=== PATIENT | male | born 1950 | race Caucasian/White ===

== ENCOUNTER 2016-11-10 10:25 | Emergency (ER) | payer BC ==
[~2016-11-10 10:25] MED LIST: ADULT LOW DOSE81 MG PO; EPIPEN 2-P0.3 MG/0.3 IM; LEVOTHYROXINE50 MCG PO; LISINOPRIL20 MG PO; MULTIVITAMINS1 EAC7 PO; NITROSTAT0.4 MG SL; SULFASALAZINE500 MG PO
[2017-04-08] MEDS ORDERED: HYDROCHLOROTH12.5 MG PO (11:24)
[2017-04-08] MEDS ORDERED: FLAXSEED-FISH-400 MG PO (11:26)
[2017-04-08] MEDS ORDERED: OCUVITE TABLET1 EAC1 PO (11:27)
== END 2016-11-10 11:08 | disposition home or self-care (01) ==
LOC: ED 10:25
DX: Z00.8 Encounter for other general examination (principal)

== ENCOUNTER 2020-03-06 11:50 | Day surgery (SDC) | payer BC ==
[~2020-03-06] VITALS: Ht 182.9 cm; Wt 111.0 kg
--- NOTE | ~2020-03-06 | OR ---
[facility] [address] [place], [place] [address] Draft DATE OF OPERATION: 03/06/2020 SURGEON: Andrea Herrera MD PREOPERATIVE DIAGNOSES: 1. Longstanding history of ulcerative colitis. 2. Skin lesion, right posterior shoulder and neck. POSTOPERATIVE DIAGNOSES: 1. Skin lesion on posterior shoulder, likely skin cancer. 2. Diverticulosis of colon and no evidence of ulcerative colitis. 3. Small polyp of rectum, probably hyperplastic. PROCEDURES: 1. Total colonoscopy to cecum with random biopsies. 2. Excision of rectal small polyp. ANESTHESIA: Intravenous sedation, fentanyl 150 mcg and Versed 7 mg. INDICATIONS: This 69-year-old white man is a patient of Dr. Arboleda and well known to me from the past. He last underwent colonoscopy in 2017. He has longstanding ulcerative colitis more than 25 years. He is here for surveillance colonoscopy on the basis of his ulcerative colitis, though he has no particular complaints of diarrhea, bleeding, or anything of that sort. He takes sulfasalazine 500 mg daily. Additionally, he is noted to have skin lesion of his right posterior shoulder and a smaller lesion of his nape and back of his neck, which we are anticipating for resection in the future. He understands the risks of bleeding, infection, and perforation related to colonoscopy and wished to proceed. FINDINGS: The prep was excellent. Complete colonoscopy undertaken of the cecum. There were multiple diverticula of the sigmoid and left colon. There was a small polyp of the rectum, which was excised. The remaining colon showed no evidence of active colitis. As regard to the skin lesion, the posterior shoulder on the right side, the lesion is ulcerated highly consistent with skin cancer, for which we advocate excision. We will set that up. PATIENT NAME: CELENA LAMBERT OPERATIVE REPORT DATE OF : 52 REPORT #: [id number] PHYSICIAN: ANDREA HERRERA MD PCP: PATTY ARBOLEDA MD REPORT IS CONFIDENTIAL AND NOT TO BE RELEASED WITHOUT AUTHORIZATION [facility] [address] [place], [place] [address] Draft DESCRIPTION OF PROCEDURE: The patient was brought to the endoscopy suite and placed in lateral decubitus position, given intravenous sedation to the point of slurred speech and nystagmus. Digital rectal examination was normal. Olympus video colonoscope was passed into the rectum and manipulated throughout the colon noting numerous diverticula of the sigmoid and left colon. The scope was advanced ultimately to the cecum. The cecum appeared normal. Biopsies were taken of the cecum and the scope was withdrawn and biopsies then taken of the transverse colon and subsequently sigmoid and rectum. All these areas showed no sign of active colitis. A small polyp of the rectum was noted, this was excised with cold morcellation technique, it may be hyperplastic. Retroflexed view showed some internal hemorrhoidal changes. Scope was removed and examination of the right posterior shoulder undertaken showing an ulcerated skin lesion consistent with basal cell or squamous cell carcinoma, for which excision is anticipated. CONCLUDING DIAGNOSIS: 1. Diverticulosis. No evidence of active colitis, polyp x1. 2. Skin lesion of the posterior shoulder, likely skin cancer, for which excision is needed. PLAN: We will repeat colonoscopy in 5 years or sooner if clinically indicated. He will call to schedule right shoulder skin and neck skin lesion excision in the office. Andrea Herrera MD JM/MODL /[id number] cc: Patty Arboleda MD Copies: PATTY ARBOLEDA MD PATIENT NAME: CELENA LAMBERT OPERATIVE REPORT DATE OF : 52 REPORT #: [id number] PHYSICIAN: ANDREA HERRERA MD PCP: PATTY ARBOLEDA MD REPORT IS CONFIDENTIAL AND NOT TO BE RELEASED WITHOUT AUTHORIZATION [address] [address] Draft ~ PATIENT NAME: CELENA LAMBERT OPERATIVE REPORT DATE OF : 52 REPORT #: [id number] PHYSICIAN: ANDREA HERRERA MD PCP: PATTY ARBOLEDA MD REPORT IS CONFIDENTIAL AND NOT TO BE RELEASED WITHOUT AUTHORIZATION
[~2020-03-06 11:50] MED LIST changes: +FLAXSEED-FISH-400 MG PO; +HYDROCHLOROTH12.5 MG PO; +OCUVITE TABLET1 EAC1 PO
--- NOTE | 2020-03-06 13:55 | NUR ---
03/06/20 1355 Brenda Quintana 1350- PT ARRIVES TO PACU ALERT AND ORIENTED. PT REPORTS NO PAIN OR NAUSEA. RESP EVEN AND UNLABORED. OXYGEN SAT HIGH 90'S TO 100% ON 2L VIA NC.
--- NOTE | 2020-03-07 13:42 | PATH ---
[facility] [address] [place], [place] [address] Signed SPECIMEN(S): A CECUM SPECIMEN(S): B TRANSVERSE SPECIMEN(S): C DESCENDING SPECIMEN(S): D SIGMOID SPECIMEN(S): E RECTAL POLYP SPECIMEN SOURCE: A. CECUM B. TRANSVERSE C. DESCENDING D. SIGMOID E. RECTAL POLYP CLINICAL HISTORY: History ulcerative colitis. Post: Diverticulosis, rectal polyp. Colonoscopy. MICROSCOPIC DESCRIPTION: Histologic sections of all submitted blocks are examined by light microscopy. These findings, together with the gross examination, support the pathologic diagnosis. FINAL PATHOLOGIC DIAGNOSIS: A. Colon, cecum, biopsy: - Colonic mucosa with no significant pathologic changes. B. Colon, transverse, biopsy: - Colonic mucosa with no significant pathologic changes. C. Colon, descending, biopsy: - Colonic mucosa with no significant pathologic changes. D. Colon, sigmoid, biopsy: - Colonic mucosa with no significant pathologic changes. E. Rectum, polypectomy: - Colonic mucosa with focal Paneth cell metaplasia, suggestive of prior mucosal injury. - Negative for dysplasia. BRP:cml:C2NR GROSS DESCRIPTION: Five specimens are received in five containers, labeled "WC." A. The specimen, labeled "WC," and designated on the requisition "cecum biopsy," is received in formalin and consists of two fragments of pink-triplett tissue (0.4 x 0.3 x 0.1 cm in aggregate). The PATIENT NAME: CELENA LAMBERT PATHOLOGY DATE OF : 52 REPORT #: [id number] PHYSICIAN: ROBERTO CARTER PCP: PATTY GARCIA MD REPORT IS CONFIDENTIAL AND NOT TO BE RELEASED WITHOUT AUTHORIZATION [facility] [address] [place], [place] [address] Signed specimen is submitted entirely in cassette (A1). B. The specimen, labeled "WC," and designated on the requisition "transverse biopsy," is received in formalin and consists of one piece of pink-triplett tissue (0.3 x 0.3 x 0.2 cm). The specimen is submitted entirely in cassette (B1). C. The specimen, labeled "WC," and designated on the requisition "descending biopsy," is received in formalin and consists of two fragments of pink-triplett tissue (0.6 x 0.2 x 0.1 cm in aggregate). The specimen is submitted entirely in cassette (C1). D. The specimen, labeled "WC," and designated on the requisition "sigmoid biopsy," is received in formalin and consists of two fragments of pink-triplett tissue (0.5 x 0.3 x 0.2 cm in aggregate). The specimen is submitted entirely in cassette (D1). E. The specimen, labeled "WC," and designated on the requisition "rectal polyp," is received in formalin and consists of two fragments of pink-triplett tissue (0.6 x 0.2 x 0.2 cm). The specimen is submitted entirely in cassette (E1). AC (under the direct supervision of a pathologist) The Gross Description was prepared using a voice recognition system. The report was reviewed for accuracy; however, sound-alike word errors, addition and/or deletions may occur. If there is any question about this report, please contact Client Services. PERFORMING LABORATORY: The technical component was performed by [facility], [address] [place] [id number] (International Guest Coordinator: Jesica Riggs MD; CLIA# [id number]). Professional interpretation was performed by [facility], [place] branch, [address] [facility] [address] [address] (CLIA# [id number]). Diagnostician: Peter Grissom MD Pathologist Electronically Signed 03/07/2020 Copies: ~ PATIENT NAME: CELENA LAMBERT PATHOLOGY DATE OF : 52 REPORT #: [id number] PHYSICIAN: ROBERTO PATHOLOGY PCP: PATTY GARCIA MD REPORT IS CONFIDENTIAL AND NOT TO BE RELEASED WITHOUT AUTHORIZATION
== END 2020-03-06 14:34 | disposition home or self-care (01) ==
LOC: DS 11:50 → OPS 11:50 → DS 13:00 → OPS 14:34 → DS 03-12 13:00
PROVIDERS: ATTEND Surgery
PROC: 0DBL8ZX Excision of Transverse Colon, Via Natural or Artificial Opening Endoscopic, Diagnostic (ICD-10-PCS; 2020-03-06)
PROC: 0DBN8ZX Excision of Sigmoid Colon, Via Natural or Artificial Opening Endoscopic, Diagnostic (ICD-10-PCS; 2020-03-06)
PROC: 0DBP8ZX Excision of Rectum, Via Natural or Artificial Opening Endoscopic, Diagnostic (ICD-10-PCS; 2020-03-06)
PROC: 0DBM8ZX Excision of Descending Colon, Via Natural or Artificial Opening Endoscopic, Diagnostic (ICD-10-PCS; 2020-03-06)
PROC: 0DBH8ZX Excision of Cecum, Via Natural or Artificial Opening Endoscopic, Diagnostic (ICD-10-PCS; principal; 2020-03-06 13:00)
DX: Z09 Encounter for follow-up examination after completed treatment for conditions other than malignant neoplasm (principal); K62.1 Rectal polyp; K57.30 Diverticulosis of large intestine without perforation or abscess without bleeding; K64.8 Other hemorrhoids; I10 Essential (primary) hypertension; D48.5 Neoplasm of uncertain behavior of skin; E03.9 Hypothyroidism, unspecified; K21.9 Gastro-esophageal reflux disease without esophagitis; G47.30 Sleep apnea, unspecified; Z91.030 Bee allergy status; Z79.899 Other long term (current) drug therapy; Z79.82 Long term (current) use of aspirin; Z87.19 Personal history of other diseases of the digestive system; Z87.891 Personal history of nicotine dependence
CPT/HCPCS: 99153; G0500; J2250; J3010; J7121